=== PATIENT | male | born 1955 | race Caucasian/White ===

== ENCOUNTER 2016-08-13 10:50 | Day surgery (SDC) | payer BC ==
[2016-08-12 09:42] VITALS: BMI 32.5
[~2016-08-13 10:50] MED LIST: LACTATED RINGERS 1,000 ML IV SCH
[2016-08-13] MEDS ORDERED: LIDOCAINE 1% 20 ML VIAL (10MG/ML) FOR IV START INTRADERMA ONE (11:04)
[2016-08-13] MEDS ORDERED: LACTATED RINGERS 1,000 ML IV ONE (11:04)
[2016-08-13 11:08] VITALS: TEMP 97.7
--- NOTE | 2016-08-13 11:11 | P.GSHP ---
History of Present Illness H&P Date: 08/13/16 Chief Complaint: GERD, screening Patient here today for upper and lower endoscopy. He has a history of reflux. He also has a personal history of colon polyps last colonoscopy 4 years ago. He has a family history of colon cancer as well. Past Medical History Past Medical History: Hyperlipidemia History of Any Multi-Drug Resistant Organisms: None Reported Past Surgical History: Orthopedic Surgery Additional Past Surgical History / Comment(s): Shoulder arthroscopy, Fx leg with thierry; EGD, Colonoscopy Past Anesthesia/Blood Transfusion Reactions: No Reported Reaction Smoking Status: Current every day smoker - Past Family History Mother Family Medical History: Cancer Brother(s) Family Medical History: Cancer Medications and Allergies Home Medications Medication Instructions Recorded Confirmed Type Atorvastatin [Lipitor] 20 mg PO HS 08/12/16 08/13/16 History Allergies Allergy/AdvReac Type Severity Reaction Status Date / Time No Known Allergies Allergy Verified 08/12/16 09:36 Surgical - Exam Vital Signs Temp Pulse Resp BP Pulse Ox 97.7 F 81 18 135/84 93 L 08/13/16 11:04 08/13/16 11:04 08/13/16 11:04 08/13/16 11:04 08/13/16 11:04 Physical exam: General: Well-developed, well-nourished HEENT: Normocephalic, sclerae nonicteric Abdomen: Nontender, nondistended Extremities: No edema Neuro: Alert and oriented Assessment and Plan (1) GERD (gastroesophageal reflux disease) Narrative/Plan: Will proceed with upper and lower endoscopy today. Status: Acute
[2016-08-13] MEDS ORDERED: PROPOFOL 10 MG/ML 20 ML VIAL IV ONE (11:17)
--- NOTE | 2016-08-13 11:49 | P.PCN ---
Date of Procedure: 08/13/16 Preoperative Diagnosis: Postoperative Diagnosis: Procedure(s) Performed: PREOPERATIVE DIAGNOSIS: GERD, history of colon polyps POSTOPERATIVE DIAGNOSIS: Gastritis, small transverse colon polyp, mild diverticulosis PROCEDURE: 1. EGD with biopsy 2. Colonoscopy with snare polypectomy ANESTHESIA: [facility] – [place] SURGEON: Babatunde Meza M.D. SPECIMENS: Antrum, transverse colon polyp ENDOSCOPIC PROCEDURE: The patient was on the endoscopy table in the left decubitus position. The Olympus gastroscope was inserted into the oropharynx and passed under direct visualization to the region of the third portion of the duodenum. From that point the scope was slowly withdrawn inspecting all surfaces carefully. There were no neoplastic inflammatory or polypoid lesions throughout the duodenum. The pylorus was widely patent. The stomach was carefully inspected. There was mild gastritis present. A biopsy of the antrum took place to rule out H. pylori. Retroflexion revealed a normal hiatus. The esophagus was then carefully examined. There were no neoplastic inflammatory or polypoid lesions throughout the visualized esophagus. The patient was kept on the endoscopy table in the left decubitus position. The Olympus colonoscope was inserted into the anus and passed under direct visualization to the base of the cecum. The appendiceal orifice was visualized. From that point the scope was slowly withdrawn inspecting all surfaces carefully. There were no neoplastic inflammatory or polypoid lesions throughout the cecum and ascending colon. In the transverse colon a small polyp was removed using the snare with cautery technique. Ironically there was a small area of bleeding from that site that was controlled using a single administration of electrocautery. The remainder of the transverse descending, sigmoid and rectum appeared normal. There was mild diverticulosis noted throughout the colon. Digital rectal examination was normal. The patient was taken to the recovery room in stable condition per anesthesia guidelines. RECOMMENDATIONS: Await biopsy results. Resume diet. Anticipate follow-up colonoscopy 5 years. Implants: Indications for Procedure: Operative Findings: Description of Procedure:
[2016-08-13 11:54] VITALS: RESP 16
[2016-08-13 12:14] VITALS: PULSE 65
[2016-08-13 12:30] VITALS: BP 142/94
== END 2016-08-13 12:40 | disposition home or self-care (01) ==
LOC: ORWHC2ENDO 10:50
PROVIDERS: ATTEND Surgery
DX: Z12.11 Encounter for screening for malignant neoplasm of colon (principal); K21.9 Gastro-esophageal reflux disease without esophagitis; K29.50 Unspecified chronic gastritis without bleeding; K57.30 Diverticulosis of large intestine without perforation or abscess without bleeding; K63.5 Polyp of colon; E78.5 Hyperlipidemia, unspecified; F17.200 Nicotine dependence, unspecified, uncomplicated; Z86.010 Personal history of colon polyps; Z80.0 Family history of malignant neoplasm of digestive organs; Z79.899 Other long term (current) drug therapy
CPT/HCPCS: 88305; 88342; 45385; 43239; J2704

== ENCOUNTER → 2023-10-18 | Outpatient (CLI) | payer OTHER ==
--- NOTE | 2023-10-18 16:51 | XR ---
EXAMINATION TYPE: XR chest 2V DATE OF EXAM: 10/18/2023 4:32 PM CLINICAL INDICATION: Male, 68 years old with history of HISTORY OF FALL, LEFT SIDE PAIN; [facility] COMPARISON: 10/18/2023 TECHNIQUE: XR chest 2V Frontal view of the chest. FINDINGS: Lungs/Pleura: There is no evidence of pleural effusion, focal consolidation, or pneumothorax. Pulmonary vascularity: Unremarkable. Heart/mediastinum: Cardiomediastinal silhouette is unremarkable. Musculoskeletal: No acute osseous pathology. Other findings: None Lines/Tubes: IMPRESSION: No acute cardiopulmonary disease/process.
--- NOTE | 2023-10-18 16:54 | XR ---
EXAMINATION TYPE: XR humerus LT DATE OF EXAM: 10/18/2023 4:32 PM CLINICAL INDICATION: Male, 68 years old with history of Z91.81 HIST OF FALLING,M79.602 PAIN LT ARM; P [facility] COMPARISON: None TECHNIQUE: XR humerus LT examined in frontal and lateral projections. FINDINGS: No evidence of acute osseous pathology, joint dislocation, or soft tissue swelling. The rem aining portions of the visualized chest are unremarkable. IMPRESSION: No acute osseous pathology.
--- NOTE | 2023-10-18 16:54 | XR ---
EXAMINATION TYPE: XR shoulder complete LT DATE OF EXAM: 10/18/2023 4:32 PM CLINICAL INDICATION: Male, 68 years old with history of Z91.81 HIST OF FALLING,M79.602 PAIN LT ARM; P [facility] COMPARISON: None TECHNIQUE: XR shoulder complete LT; examined in AP, internally rotated and scapular Y projections. FINDINGS: No evidence of acute osseous pathology, joint dislocation, or soft tissue swelling. The remaining po rtions of the visualized chest are unremarkable. IMPRESSION: No acute osseous pathology.
--- NOTE | 2023-10-18 16:55 | XR ---
EXAMINATION TYPE: XR lumbar spine 2 or 3V DATE OF EXAM: 10/18/2023 4:32 PM CLINICAL INDICATION: Male, 68 years old with history of Z91.81 HIST OF FALLING,M79.602 PAIN LT ARM; P [facility] COMPARISON: None TECHNIQUE: XR lumbar spine 2 or 3V - Frontal, lateral and coned in L5-S1 lateral views of the spine. FINDINGS: No evidence of any acute osseous pathology. Multiple levels demonstrate mild wedging of the vertebral body with up to 25% height loss including T12, L1 and L3-L4 and L5. Scattered disc space n arrowing. Multilevel marginal osteophyte formation throughout the visualized spine. There is facet wilma int arthropathy throughout the spine. Scattered at least mild neural foraminal stenosis. IMPRESSION: 1. Mild vertebral body wedging at multiple levels which are age indeterminate consider correlation wi th MRI and back pain. 2. Mild multilevel disc degeneration.
--- NOTE | 2023-10-18 16:57 | XR ---
EXAMINATION TYPE: XR scapula LT DATE OF EXAM: 10/18/2023 4:32 PM CLINICAL INDICATION: Male, 68 years old with history of Z91.81 HIST OF FALLING,M79.602 PAIN LT ARM; P [facility] COMPARISON: None TECHNIQUE: XR scapula LT; examined in AP, internally rotated and scapular Y projections. FINDINGS/IMPRESSION: Questionable fracture of the scapular spine on lateral view. Correlate with point tenderness and CT i yadira.
--- NOTE | 2023-10-18 21:38 | XR ---
EXAMINATION TYPE: XR ribs LT DATE OF EXAM: 10/18/2023 4:32 PM CLINICAL INDICATION: Male, 68 years old with history of HISTORY OF FALL, LEFT SIDE PAIN; [facility] COMPARISON: 10/18/2023 TECHNIQUE: XR ribs LT; Frontal and oblique views of the ribs with frontal chest radiograph. FINDINGS: The ribs have a normal appearance. No evidence of fracture. Overall, the lungs are clear. The cardiac silhouette is normal in size. The remaining osseous structures are intact. IMPRESSION: No acute osseous pathology.
== END | disposition home or self-care (01) ==
LOC: RADXRMAIN 15:18
PROVIDERS: ATTEND Family Medicine
DX: Z91.81 History of falling (principal); M79.602 Pain in left arm; M51.36 Other intervertebral disc degeneration, lumbar region; M99.73 Connective tissue and disc stenosis of intervertebral foramina of lumbar region; M47.896 Other spondylosis, lumbar region
CPT/HCPCS: 71046; 72100

== ENCOUNTER → 2024-05-30 | Outpatient (CLI) | payer MEDICARE ==
--- NOTE | 2024-05-30 16:18 | CT ---
EXAMINATION TYPE: CT lumbar spine wo con DATE OF EXAM: 05/30/2024 3:56 PM COMPARISON: None CLINICAL INDICATION: Male, 69 years old with history of M47.27 SPONDYLOSIS WITH RADICULOPATHY, LUMBOS ACRAL; PHH, Chronic back pain TECHNIQUE: Unenhanced CT of the lumbar spine was performed. Bone and soft tissue window settings are submitted as well as coronal and sagittal reconstructions. CT DLP: 1619.[address] CTDI: mGy Automated exposure control for dose reduction was used. FINDINGS: There is been interval development of a destructive mass involving these appear aspect of the L3 vert ebral segment. The findings are highly suspicious for primary or secondary neoplasm. There are mild compression fractures of T12 and L1 with no retropulsion. There is a grade 1 anterolisthesis of L4 and L5 and a slight retrolisthesis of L5 on S1. There is multilevel degenerative disease mild at the T12/L1 level, L1/L2 level and L5-S1 level. There is moderate disc space narrowing, spondylosis and vacuum phenomena indicating moderate degenerative disease at the L4-5 level. There is moderate facet arthropathy at L4-5 and L5-S1 levels. The visualized sacrum and SI joints are normal. There is no lumbar disc herniation or spinal stenosis. At the L5-S1 level on the left. Mild bony neur oforaminal encroachment at L5-S1 level on the left. IMPRESSION: 1. Destructive processes involving the superior aspect of the L3 vertebral segment highly suspicious for primary or metastatic neoplasm. MRI of the lumbar spine with and without contrast is recommended for further evaluation. 2. Grade 1 anterolisthesis of L4 on L5 and slight retrolisthesis of L5 on S1. 3. Multilevel degenerative disease. 4. No lumbar disc herniation or spinal stenosis. 5. Mild bony neural foraminal encroachment at the L5-S1 level on the left. [facility], , 05/30/2024 4:15 PM
== END | disposition home or self-care (01) ==
LOC: RADCTMAIN 15:20
PROVIDERS: ATTEND Neurological Surgery
DX: S22.000G Wedge compression fracture of unspecified thoracic vertebra, subsequent encounter for fracture with delayed healing (principal); M51.16 Intervertebral disc disorders with radiculopathy, lumbar region; M47.27 Other spondylosis with radiculopathy, lumbosacral region; M43.17 Spondylolisthesis, lumbosacral region
CPT/HCPCS: 72131

== ENCOUNTER → 2024-06-08 | Outpatient (CLI) | payer MEDICARE ==
--- NOTE | 2024-06-08 14:45 | NM ---
INDICATION: Patient age:Male; 69 years old; Reason for study: M43.8X9 OTHER SPEC DEFORMING DORSOPATHIES; PHH. Reported history of bladder cancer. COMPARISON: CT lumbar spine 05/30/2024, multiple radiographs 10/18/2023. TECHNIQUE: Intravenous administration of 33.1 mCi of Technetium 99m-Medronate followed by multiple sc intigraphic images of the appendicular and axial skeleton. Additionally, small field of view planar a nterior and posterior images of the lumbosacral spine and pelvis. Lastly, small [id number] anterio r, posterior and lateral views of the chest were submitted for review. FINDINGS: There are focal radiotracer uptake identified within the left anterior seventh, eighth, and ninth rib s. Focal radiotracer activity identified at the T12 and L3 vertebral body. There is increased uptake within the bilateral shoulder and sternoclavicular consistent with degener ative changes. No other photopenic areas or areas of increased activity are identified. Physiologic radiotracer activity is demonstrated in the kidneys and bladder. IMPRESSION: 1. Focal radiotracer uptake involving the T12 and L3 vertebral bodies corresponding to fractures and /or destructive process. Recommend further evaluation with MRI lumbar spine. 2. Focal radiotracer uptake identified within the left anterior seventh, eighth, and ninth ribs. Dis tribution suggests possible fracture. Correlate for prior history of fracture. Less likely metastasis . Consider further evaluation with CT chest. [facility], , 06/08/2024 2:43 PM
== END | disposition home or self-care (01) ==
LOC: RADNMMAIN 10:45
PROVIDERS: ATTEND Internal Medicine
DX: M43.8X9 Other specified deforming dorsopathies, site unspecified (principal)
CPT/HCPCS: 78306; A9503

== ENCOUNTER → 2024-06-21 | Outpatient (CLI) | payer MEDICARE ==
[2024-06-21 10:22] VITALS: BP 118/77; PULSE 78; RESP 16; TEMP 97.1
--- NOTE | 2024-06-21 14:51 | P.PAINPG ---
PQRS Measure Charge Sheet Comment: HISTORY OF PRESENT ILLNESS: A 69 yr old male as a referral from Dr Virgen presents today w severe and chronic thoracolumbar pain > 3 mo secondary to L1 Compression Fx, L4-L5 anterolisthesis, L2-L3 stenosis, T10 compression fracture, T11L1 radiculopathy for evaluation. Pt states pain level is provoked at 6 /10 in intensity, constant, localized in the lumbar spine, predominantly axial, achy in character w occasional shooting pain towards the upper back and groin. Pain is provoked by over activity, standing/ sitting for periods > 30 min. Pain is alleviated by physician guided home exercises 4-5 times weekly since Apr 2024, medications, topical, use of a LSO, repositioning and rest . Oswestry axial pain score at 32. Pt is frail and can not participate in formal PT/ chiropractic sessions. PMH: OA, Hyperlipidemia, BPH PSH: EGD/ Colonoscopy (2016), Shoulder arthroscopy, Fx leg with thierry, Bladder CA Surgery (2023), BL Cataract Resection, RLE Tib/Fib ORIF (2004), BL RCT Repair SH: Daily tobacco use, Occ ETOH use, No illicit drug use FH: Mo- CA. Bro- CA All: See list Meds: See list include [place], Lyrica, BioFreeze, Voltaren REVIEW OF ORGAN SYSTEMS: CONSTITUTIONAL: No fevers or chills. No recent weight loss. NEUROLOGICAL: + numbness and tingling along the distal extremities. No seizure disorders or headaches. MUSCULOSKELETAL: + pain PSYCHIATRIC: Denies current depression or suicidal thoughts. Physical Examinations : Constitutional : Cooperative , not in acute distress . Neurologic : Cranial nerve II to XII intact. No focal neurological deficits. Psychiatric : alert & oriented x 3. Matching mood & appropriate affect. Judgment & insight intact. Musculoskeletal : Cervical Spine Motor strength in the deltoid and biceps: Normal right side. Normal Left side Motor strength biceps and the wrist extensors: Normal right side . Normal left side Motor strength in the triceps muscle: Normal right side. Normal left side Deep tendon reflexes: Normal at the biceps. Normal at Brachioradialis. Normal at triceps Vertebral body tenderness to deep palpation over Cervical facet loading test: positive bilaterally Spurling test: positive bilaterally Neck distraction test: positive bilaterally Heike sign: positive bilaterally Lumbar spine Motor strength lower extremities ,thigh and legs 5/5 Right side , 5/5 Left side Deep tendon reflexes : Normal Knee Jerk. Normal Ankle Jerk Vertebral body tenderness over L5 Chao Test positive BL L4-L5 Lumbar facet Loading Test: positive Right / positive Left Range of motion of the lumbar spine Flexion 30 degrees, extension 10 degrees Straight Leg Raise test: Left/ Right positive at degrees Enma test: positive right / positive left. Severe tenderness over the Sacroiliac joint on the Right / Left sides Gaenslen test: positive bilaterally Seated flexion test: positive bilaterally. Sacral spine : Severe tenderness over the Sacroiliac joint: right side / left side Range of motion: Flexion of the lumbar spine <60 degrees Range of motion: Extension of the lumbar spine <20 degrees Gaenslen's Test positive Enma test: positive right side / left side Thigh Thrust Test Sacral Thrust Test Imaging: MRI non contrast thoracic spine from 06/19/2024 reviewed MRI with/ without contrast lumbar spine from 06/07/24 reviewed Assessment/ Plan : L1 Compression Fx, L4-L5 anterolisthesis, L2-L3 stenosis, T10 compression fracture, T11L1 radiculopathy Recommendation of JADE L4-L5 #1. Risks, benefits of procedure discussed and carina parra verbalized understanding. Admits to anti- coagulant use or medical history of diabetes. Protocol for discontinuation/ continuation of medications pb procedure discussed. All questions answered. I have spent greater than 30 minutes on patient care today. Dr Howell was available by phone for the evaluation of this patient. The time was used to review the medical records including relevant urine studies and Prescription history (MAPs), review of the available imaging, evaluation and examination of the patient, coordination of care with the medical staff and if applicable referring physicians, as well as creation of the medical record Home Medications: Ambulatory Orders Atorvastatin [Lipitor] 20 mg PO HS 08/12/16 Controlled Substance Measures - Controlled Substance Measures Is patient prescribed a controlled substance at discharge?: Yes When asked, does pt state using other controlled substances?: Yes If prescribed controlled substance>3 days was MAPS reviewed?: Prescribed <3 Days
== END ==
LOC: PNWHC3 09:51
PROVIDERS: ATTEND Specialist
DX: M48.061 Spinal stenosis, lumbar region without neurogenic claudication (principal); M48.56XA Collapsed vertebra, not elsewhere classified, lumbar region, initial encounter for fracture; M43.16 Spondylolisthesis, lumbar region; E11.9 Type 2 diabetes mellitus without complications; F17.200 Nicotine dependence, unspecified, uncomplicated; F12.90 Cannabis use, unspecified, uncomplicated
CPT/HCPCS: 99211

== ENCOUNTER 2024-06-28 08:44 | Day surgery (SDC) | payer MEDICARE ==
[2024-06-26 12:06] VITALS: BMI 32.1
[2024-06-28 09:13] VITALS: RESP 16; TEMP 97.9
[2024-06-28] MEDS ORDERED: methylPREDNISolone ACETATE 80 MG/ML 1 ML VIAL ONE (10:11)
--- NOTE | 2024-06-28 10:22 | P.PCN ---
Date of Procedure: 06/28/24 Procedure(s) Performed: PREOPERATIVE DIAGNOSIS: 1- Lumbar Degenerative Disc Diseases 2-Lumbar spondylosis with Facet arthropathy without myelopathy. 3-lumbar radiculopathy POSTOPERATIVE DIAGNOSIS: 1-lumbar degenerative disc disease. 2-lumbar spondylosis with facet arthropathy without myelopathy. 3-lumbar radiculopathy PROCEDURE 1. Lumbar epidural steroid injection under fluoroscopic guidance at the L4-5 level. (Fluoroscopy imaging was available in radiology department) 2. Lumbar epidurogram. ANESTHESIA: Lidocaine 1% 3 and then only. EBL: Minimal PROCEDURE INDICATION: The patient with low back pain and radiculitis symptoms unresponsive to conservative treatment. Fluoroscopy was used to optimize visualization of the needle placement and to maximize safety. PROCEDURE DESCRIPTION / TECHNIQUE: The patient was seen and identified in the preoperative area. Risks, benefits, complications including but not limited to infections ,bleeding ,allergic reaction to the medications ,nerve damage and not complete pain releife , and alternatives were discussed with the patient. The patient agreed to proceed with the procedure and signed the consent, and vital signs were stable. Patient was taken to the OR and time out was completed. The patient was placed in the prone position on procedure table and a pillow was placed under the abdomen to reduce lumbar lordosis. The lumbosacral area was prepped and draped in the usual sterile fashion.ere closely monitored during the procedure. Vital signs was monitered during the entire procedure. Using anterior-posterior fluoroscopy, the L4-5 interlaminar space was identified and the skin over this site was marked and then infiltrated with 1% lidocaine subcutaneously. Subsequently, a 20-gauge Tuohy epidural needle was inserted and advanced toward the epidural space using the ``Loss of resistance technique and guided by AP and lateral fluoroscopy. The correct needle position in the epidural space was verified with the injection of 2 mL of the water soluble contrast dye Isovue 200 contrast and observing an excellent epidurogram with the epidural spread of the dye, after negative aspiration for blood and CSF and in the absence of paresthesias. Again after negative aspiration, 5 ml mixture containing 60 mg of Depo-medrol ( Preservetive Free ), and 2 ml of preservative free Normal Saline, and 2 ml of preservative free lidocaine 1% solution was injected and a washout of epidurogram was seen. Needle was withdrawn intact, skin was cleansed, and bandages were applied. COMPLICATIONS: None DISPOSITION / PLANS: The patient was placed in a supine position and transferred to the recovery area in a stable condition for observation. There was no evidence of lower extremity motor or sensory deficit after the procedure. Patient was discharged from the recovery room after meeting discharge criteria. Home discharge instructions were given to the patient by the staff. The patient was reexamined prior to discharge. The patient will schedule a follow up in the clinic in 2-4 weeks.
[2024-06-28 10:38] VITALS: PULSE 74
[2024-06-28 10:40] VITALS: BP 158/89
--- NOTE | 2024-06-28 10:40 | FL ---
EXAMINATION TYPE: FL guided pain mgmt statistic DATE OF EXAM: 06/28/2024 FLUOROSCOPY LESI 2.5 FL DAP [id number] 2 images are submitted. [facility], Workstation: [facility], 06/28/2024 10:37 AM
== END 2024-06-28 11:01 ==
LOC: ORPAIN 08:44
PROVIDERS: ATTEND Specialist
DX: M51.16 Intervertebral disc disorders with radiculopathy, lumbar region (principal); M47.26 Other spondylosis with radiculopathy, lumbar region
CPT/HCPCS: 62323; J1010

== ENCOUNTER → 2024-07-23 | Outpatient (CLI) | payer MEDICARE ==
[2024-07-23 10:43] VITALS: BP 126/76; PULSE 72; RESP 20
--- NOTE | 2024-07-25 07:31 | P.PAINPG ---
PQRS Measure Charge Sheet Comment: HISTORY OF PRESENT ILLNESS: A 69 yr old male presents today w severe and chronic thoracolumbar pain > 3 mo secondary to L1 Compression Fx, L4-L5 anterolisthesis, L2-L3 stenosis, T10 compression fracture, T11L1 radiculopathy for evaluation s/p JADE L4-L5 #1. Pt states he experienced 60 % pain relief x 2 wks s/p procedure. Pt states pain level is provoked at 5-6 /10 in intensity, constant, localized in the lumbar spine, predominantly axial, achy in character w occasional shooting pain towards the groin. Pain is provoked standing from a sitting position. Pain is alleviated by physician guided home exercises 4-5 times weekly since Apr 2024, medications, topical, use of a LSO, repositioning and rest . Oswestry axial pain score at 32. Pt is frail and can not participate in formal PT/ chiropractic sessions. Interventional procedures include Shoulder arthroscopy, Fx leg with thierry, RLE Tib/Fib ORIF (2004), BL RCT Repair, JADE L4-L5 #1 (07/08) Meds: See list include [place], Lyrica, BioFreeze, Voltaren REVIEW OF ORGAN SYSTEMS: CONSTITUTIONAL: No fevers or chills. No recent weight l oss. NEUROLOGICAL: + numbness and tingling along the distal extremities. No seizure disorders or headaches. MUSCULOSKELETAL: + pain PSYCHIATRIC: Denies current depression or suicidal thoughts. Physical Examinations : Constitutional : Cooperative , not in acute distress . Neurologic : Cranial nerve II to XII intact. No focal neurological deficits. Psychiatric : alert & oriented x 3. Matching mood & appropriate affect. Judgment & insight intact. Musculoskeletal : Cervical Spine Motor strength in the deltoid and biceps: Normal right side. Normal Left side Motor strength biceps and the wrist extensors: Normal right side . Normal left side Motor strength in the triceps muscle: Normal right side. Normal left side Deep tendon reflexes: Normal at the biceps. Normal at Brachioradialis. Normal at triceps Vertebral body tenderness to deep palpation over Cervical facet loading test: positive bilaterally Spurling test: positive bilaterally Neck distraction test: positive bilaterally Heike sign: positive bilaterally Lumbar spine Motor strength lower extremities ,thigh and legs 5/5 Right side , 5/5 Left side Deep tendon reflexes : Normal Knee Jerk. Normal Ankle Jerk Vertebral body tenderness over L5 Chao Test positive BL L4-L5 Lumbar facet Loading Test: positive Right / positive Left Range of motion of the lumbar spine Flexion 30 degrees, extension 10 degrees Straight Leg Raise test: Left/ Right positive at degrees Enma test: positive right / positive left. Severe tenderness over the Sacroiliac joint on the Right / Left sides Gaenslen test: positive bilaterally Seated flexion test: positive bilaterally. Sacral spine : Severe tenderness over the Sacroiliac joint: right side / left side Range of motion: Flexion of the lumbar spine <60 degrees Range of motion: Extension of the lumbar spine <20 degrees Gaenslen's Test positive Enma test: positive right side / left side Thigh Thrust Test Sacral Thrust Test Imaging: MRI non contrast thoracic spine from 06/19/2024 reviewed MRI with/ without contrast lumbar spine from 06/07/24 reviewed Assessment/ Plan : L1 Compression Fx, L4-L5 anterolisthesis, L2-L3 stenosis, T10 compression fracture, T11L1 radiculopathy Recommendation of BL TFESI L4-L5 #1. Risks, benefits of procedure discussed and patient verbalized understanding. All questions answered. I have spent greater than 30 minutes on patient care today. Dr Howell was available by phone for the evaluation of this patient. The time was used to review the medical records including relevant urine studies and Prescription history (MAPs), review of the available imaging, evaluation and examination of the patient, coordination of care with the medical staff and if applicable referring physicians, as well as creation of the medical record - Pain Location Lower Back Pharmacological Interventions: Medication PQRS Narrative: Hx Alcohol Use (MH) Yes Home Medications: Ambulatory Orders Ezetimibe [Zetia] 10 mg PO DAILY 06/26/24 HYDROcodone/APAP 5-325MG [[place] 5-325] 1 tab PO BID PRN 06/26/24 [place]-3/Dha/Epa/Fish Oil [[place]-3 Fish Oil 1,000 mg Sfgl] 1 each PO DAILY 06/26/24 Pregabalin [Lyrica] 150 mg PO BID 06/26/24 Rosuvastatin [Crestor] 20 mg PO DAILY 06/26/24 Tamsulosin [Flomax] 0.4 mg PO DAILY 06/26/24 diazePAM [Valium] 10 mg PO DAILY 1 Days #1 tab 07/23/24 Controlled Substance Measures - Controlled Substance Measures Is patient prescribed a controlled substance at discharge?: Yes When asked, does pt state using other controlled substances?: No If prescribed controlled substance>3 days was MAPS reviewed?: Prescribed <3 Days
== END ==
LOC: PNWHC3 09:59
PROVIDERS: ATTEND Specialist
DX: M48.56XA Collapsed vertebra, not elsewhere classified, lumbar region, initial encounter for fracture (principal); M48.54XA Collapsed vertebra, not elsewhere classified, thoracic region, initial encounter for fracture; M48.55XA Collapsed vertebra, not elsewhere classified, thoracolumbar region, initial encounter for fracture; M48.061 Spinal stenosis, lumbar region without neurogenic claudication; M43.16 Spondylolisthesis, lumbar region; F12.90 Cannabis use, unspecified, uncomplicated; F17.200 Nicotine dependence, unspecified, uncomplicated
CPT/HCPCS: 99212

== ENCOUNTER 2024-08-14 12:56 | Day surgery (SDC) | payer MEDICARE ==
[2024-08-14 13:16] VITALS: TEMP 97.2
[2024-08-14] MEDS ORDERED: DEXAMETHASONE SOD PHOSPHATE 10 MG/ML 1 ML VIAL ONE (13:36)
[2024-08-14] MEDS ORDERED: IOPAMIDOL M300 15ML VIAL ONE (13:36)
--- NOTE | 2024-08-14 14:03 | P.PCN ---
Description of Procedure: PREOPERATIVE DIAGNOSIS: 1-Lumbar radiculopathy . 2-lumbar degenerative disc disease. 3-lumbar spondylosis with lumbar facet arthropathy without myelopathy POSTOPERATIVE DIAGNOSIS: 1-lumbar radiculopathy. 2-lumbar degenerative disc disease. 3-lumbar spondylosis with facet arthropathy without myelopathy PROCEDURE 1. Transforaminal epidural steroid injection under fluoroscopic guidance at BILATERAL L4-5 level. (Fluoroscopy images stored on file in the radiology Department ) 2. Lumbar epidurogram . ANESTHESIA: Local with 1% lidocaine 5 ml. subcutaneously. Continuous pulse ox, EKG, blood pressure and verbal communication was maintained with the patient. EBL: Minimal PROCEDURE INDICATION: The patient with low back pain and radiculopathy symptoms unresponsive to conservative treatment. The patient was seen and identified in the preoperative area. Risks, benefits, complications, and alternatives were discussed with the patient. The patient agreed to proceed with the procedure and signed the consent. IV was started, and vital signs were stable. PROCEDURE DESCRIPTION / TECHNIQUE: After getting consent, patient was taken to the OR and time out was completed. The patient was placed in the prone position on procedure table and a pillow was placed under the abdomen to reduce lumbar lordosis. The lumbosacral area w as prepped and draped in the usual sterile fashion. Critical pause was taken. After injecting 5 mL of plain 1% lidocaine subcutaneously, under oblique view of the fluoroscope, a 22-gauge spinal needle was introduced under the tunnel view of the fluoroscope on the RIGHT side and the needle was advanced so that the tip of the needle was at the posterior inferior quadrant of the intervertebral fora men at the lateral view of the fluoroscope and in the lateral third of the facet column in the AP view of the fluoroscope. Negative CSF, negative blood, negative paresthesia. After needle position confirmation by AP and cross table lateral view, 3 mL of Isovue-M 200 contrast was injected under continuous fluoroscope. No contrast was noted in the intrathecal or intravascular space. The epidurogram was noted. Again after repeated negative aspiration 2.5 mL solution was injected which consists 1 mL of normal saline mixed with 1.5 mL of 15 mg dexamethasone. Needle was removed . Same procedure was repeated at the LEFT side at same level , using contrast under continuous fluoroscopy and using same amount of dexamethasone. At the end of the procedure, skin was cleansed, and bandages were applied. DISPOSITION / PLANS: No complication. The patient tolerated the procedure well. The patient was placed in a supine position and transferred to the recovery area in a stable condition for observation. There was no evidence of lower extremity motor or sensory deficit after the procedure. Patient was discharged from the recovery room after meeting discharge criteria. Home discharge instruc tions were given to the patient by the staff. The patient was reexamined prior to discharge.
[2024-08-14 14:18] VITALS: BP 128/73; PULSE 75; RESP 17
--- NOTE | 2024-08-14 14:36 | FL ---
[address] [place] .[id number] DAP DOSE [facility], , 08/14/2024 2:33 PM
== END 2024-08-14 14:22 | disposition home or self-care (01) ==
LOC: ORPAIN 12:56
PROVIDERS: ATTEND Pain Medicine Interventional Pain Medicine
DX: M47.26 Other spondylosis with radiculopathy, lumbar region (principal); M51.16 Intervertebral disc disorders with radiculopathy, lumbar region
CPT/HCPCS: 64483; J1100; Q9967

== ENCOUNTER → 2024-09-05 | Outpatient (CLI) | payer MEDICARE ==
[2024-09-05 11:20] VITALS: BP 130/79; PULSE 75; RESP 16; TEMP 97.9
--- NOTE | 2024-09-05 15:58 | P.PAINPG ---
PQRS Measure Charge Sheet Comment: HISTORY OF PRESENT ILLNESS: A 69 yr old male presents today w severe and chronic thoracolumbar pain > 3 mo secondary to L1 Compression Fx, L4-L5 anterolisthesis, L2-L3 stenosis, T10 compression fracture, T11L1 radiculopathy for evaluation s/p BL TFESI L4-L5 #1. Pt states he experienced 60 % pain relief x 3 wks s/p procedure. Pt states pain level is provoked at 4 /10 in intensity, constant, localized in the lumbar spine, predominantly axial, achy in character w occasional shooting pain towards the groin. Pain is provoked standing from a sitting position. Pain is alleviated by physician guided home exercises 4-5 times weekly since Apr 2024, medications, topical, use of a LSO, repositioning and rest . Oswestry axial pain score at 32. Interventional procedures include Shoulder arthroscopy, Fx leg with thierry, RLE Tib/Fib ORIF (2004), BL RCT Repair, JADE L4-L5 #1 (07/08), BL TFESI L4-L5 x1 (09/07) Meds: See list include [place], Lyrica, BioFreeze, Voltaren REVIEW OF ORGAN SYSTEMS: CONSTITUTIONAL: No fevers or chills. No recent weight loss. NEUROLOGICAL: + numbness and tingling along the distal extremities. No seizure disorders or headaches. MUSCULOSKELETAL: + pain PSYCHIATRIC: Denies current depression or suicidal thoughts. Physical Examinations : Constitutional : Cooperative , not in acute distress . Neurologic : Cranial nerve II to XII intact. No focal neurological deficits. Psychiatric : alert & oriented x 3. Matching mood & appropriate affect. Judgment & insight intact. Musculoskeletal : Cervical Spine Motor strength in the deltoid and biceps: Normal right side. Normal Left side Motor strength biceps and the wrist extensors: Normal right side . Normal left side Motor strength in the triceps muscle: Normal right side. Normal left side Deep tendon reflexes: Normal at the biceps. Normal at Brachioradialis. Normal at triceps Vertebral body tenderness to deep palpation over Cervical facet loading test: positive bilaterally Spurling test: positive bilaterally Neck distraction test: positive bilaterally Heike sign: positive bilaterally Lumbar spine Motor strength lower extremities ,thigh and legs 5/5 Right side , 5/5 Left side Deep tendon reflexes : Normal Knee Jerk. Normal Ankle Jerk Vertebral body tenderness over L5 Chao Test positive BL L4-L5 Lumbar facet Loading Test: positive Right / positive Left Range of motion of the lumbar spine Flexion 30 degrees, extension 10 degrees Straight Leg Raise test: Left/ Right positive at degrees Enma test: positive right / positive left. Severe tenderness over the Sacroiliac joint on the Right / Left sides Gaenslen test: positive bilaterally Seated flexion test: positive bilaterally. Sacral spine : Severe tenderness over the Sacroiliac joint: right side / left side Range of motion: Flexion of the lumbar spine <60 degrees Range of motion: Extension of the lumbar spine <20 degrees Gaenslen's Test positive Enma test: positive right side / left side Thigh Thrust Test Sacral Thrust Test Imaging: MRI non contrast thoracic spine from 06/19/2024 reviewed MRI with/ without contrast lumbar spine from 06/07/24 reviewed Assessment/ Plan : L1 Compression Fx, L4-L5 anterolisthesis, L2-L3 stenosis, T10 compression fracture, T11L1 radiculopathy Recommendation of PT thoracolumbar spine w traction x6 wks M54.14, M54.16. All questions answered. I have spent greater than 30 minutes on patient care today. Dr Howell was available by phone for the evaluation of this patient. The time was used to review the medical records including relevant urine studies and Prescription history (MAPs), review of the available imaging, evaluation and examination of the patient, coordination of care with the medical staff and if applicable referring physicians, as well as creation of the medical record - Pain Location Bilateral Lower Back Non-Pharmacological Interventions: Inactivity, Position/Reposition, Relaxation Technique, Sitting Pharmacological Interventions: Epidural, Topical Medication PQRS Narrative: Hx Alcohol Use (MH) Yes Home Medications: Ambulatory Orders Ezetimibe [Zetia] 10 mg PO DAILY 06/26/24 HYDROcodone/APAP 5-325MG [[place] 5-325] 1 tab PO BID PRN 06/26/24 [place]-3/Dha/Epa/Fish Oil [[place]-3 Fish Oil 1,000 mg Sfgl] 1 each PO DAILY 06/26/24 Pregabalin [Lyrica] 150 mg PO BID 06/26/24 Rosuvastatin [Crestor] 20 mg PO DAILY 06/26/24 Tamsulosin [Flomax] 0.4 mg PO DAILY 06/26/24 diazePAM [Valium] 10 mg PO DAILY 1 Days #1 tab 07/23/24 Controlled Substance Measures - Controlled Substance Measures Is patient prescribed a controlled substance at discharge?: No
== END ==
LOC: PNWHC3 10:57
PROVIDERS: ATTEND Specialist
DX: M48.54XA Collapsed vertebra, not elsewhere classified, thoracic region, initial encounter for fracture (principal); M43.16 Spondylolisthesis, lumbar region; M48.061 Spinal stenosis, lumbar region without neurogenic claudication; M48.56XA Collapsed vertebra, not elsewhere classified, lumbar region, initial encounter for fracture; M47.25 Other spondylosis with radiculopathy, thoracolumbar region; F17.200 Nicotine dependence, unspecified, uncomplicated; F12.90 Cannabis use, unspecified, uncomplicated
CPT/HCPCS: 99211